=== PATIENT | female | born 1960 | race Caucasian/White ===

== ENCOUNTER → 2017-10-05 | Outpatient (CLI) | payer BC, OTHER ==
[~2017-10-05] MED LIST: ATENOLOL; ESTR.05PBW TOP; ESTR2 PO; ESTRTP VAG; HYDACE10B PO; HYDACE5 PO; HYDROCODONE; META800 PO; PROG100 PO; PROGESTERONE; SKELAXIN
== END | disposition home or self-care (01) ==
LOC: LAB 11:02 → LAB SHORT 11:02
DX: N39.0 Urinary tract infection, site not specified (principal)
CPT/HCPCS: 87086

== ENCOUNTER → 2018-01-17 | Outpatient (CLI) | payer BC, OTHER | LOC: LAB 11:40 → LAB SHORT 11:40 | DX: J02.0 Streptococcal pharyngitis (principal) | CPT/HCPCS: 87070 ==

== ENCOUNTER → 2024-06-05 | Outpatient (CLI) | payer OTHER ==
[2024-06-05 17:46] LABS: Influenza A, PCR NEGATIVE (NEGATIVE); Influenza B, PCR NEGATIVE (NEGATIVE); Resp Syncytial Virus, PCR NEGATIVE (NEGATIVE); SARS-Cov-2 (COVID-19) PCR, MMC NEGATIVE (NEGATIVE)
== END | disposition home or self-care (01) ==
LOC: LAB 15:11 → LAB SHORT 15:11
PROVIDERS: Registered Nurse
DX: R50.9 Fever, unspecified (principal)
CPT/HCPCS: 0241U